=== PATIENT | male | born 1965 | race Caucasian/White ===

== ENCOUNTER 2020-03-02 06:51 | Emergency (ER) | payer OTHER ==
[~2020-03-02] VITALS: Ht 180.3 cm; Wt 111.1 kg
[~2020-03-02 06:51] MED LIST: ASPIR 8181 MG PO; BP MED; SYNTHROID50 MCG PO; TRIAMTERENE-HCTZ1 EA PO; ULTRACET TABLE1 EACH PO
[2020-03-02 07:49] VITALS: BP 147/89
== END 2020-03-02 07:51 | disposition home or self-care (01) ==
LOC: ER 07:35
DX: M79.641 Pain in right hand (principal); S63.681A Other sprain of right thumb, initial encounter; S20.212A Contusion of left front wall of thorax, initial encounter; V43.52XA Car driver injured in collision with other type car in traffic accident, initial encounter; Y92.488 Other paved roadways as the place of occurrence of the external cause; Y99.0 Civilian activity done for income or pay
CPT/HCPCS: 71101; 99283